=== PATIENT | female | born 1930 | race Caucasian/White ===

== ENCOUNTER → 2017-01-14 | Outpatient (CLI) | payer MEDICARE, BC ==
[2014-05-10 10:52] VITALS: BP 147/72
--- NOTE | 2017-01-14 16:17 | RAD ---
DATE: 01/14/2017 EXAM: DIGITAL SCREEN BILAT W/CAD HISTORY: Bilateral screening mammogram COMPARISON: Multiple prior examinations including 01/14/2016, 01/11/2015 This study was interpreted with the benefit of Computerized Aided Detection (CAD). The breast parenchyma is heterogeneously dense, which could reduce sensitivity of mammography. Breast parenchyma level C. FINDINGS: Digital 2-D bilateral CC and MLO views. No suspicious mass, calcification or architectural distortion. No significant change from prior examination. IMPRESSION: No mammographic evidence to suggest lucency. BI-RADS 1, negative. Recommend routine screening mammogram in 12 months. BI-RADS CATEGORY: 1 NEGATIVE RECOMMENDED FOLLOW-UP: 12M 12 MONTH FOLLOW-UP PQRS compliance statement: Patient information was entered into a reminder system with a target due date January 2018 for the next mammogram. Mammography is a sensitive method for finding small breast cancers, but it does not detect them all and is not a substitute for careful clinical examination. A negative mammogram does not negate a clinically suspicious finding and should not result in delay in biopsying a clinically suspicious abnormality. "Our facility is accredited by the [employer] Mammography [employer]."
== END | disposition home or self-care (01) ==
LOC: MAMMO 10:21
PROVIDERS: ATTEND Family Medicine
DX: Z12.31 Encounter for screening mammogram for malignant neoplasm of breast (principal)
CPT/HCPCS: G0202; 77067

== ENCOUNTER → 2018-01-19 | Outpatient (CLI) | payer MEDICARE, BC | END | disposition home or self-care (01) | LOC: MAMMO 09:10 | DX: Z12.31 Encounter for screening mammogram for malignant neoplasm of breast (principal); E03.9 Hypothyroidism, unspecified | CPT/HCPCS: 77063; 77067 ==

== ENCOUNTER → 2019-01-24 | Outpatient (CLI) | payer MEDICARE, BC ==
[2018-02-26 15:00] VITALS: BP 110/62
[~2019-01-24] MED LIST: AMLO5TAB10 PO; LEVO50TA5 PO; NABU500T PO; OMEP40CA5 PO; PSYL0.4C2 PO; SIMV20TA3 PO
--- NOTE | 2019-01-27 17:58 | RAD ---
DATE: 01/24/2019 10:53 AM EXAM: DIGITAL SCREEN BILAT W/CAD HISTORY: Routine screening evaluation COMPARISON: Prior mammographic imaging 01/19/2018, 01/14/2017, 01/14/2016 Bilateral full field craniocaudal and mediolateral oblique images were obtained using digital technique. This study was interpreted with the benefit of Computerized Aided Detection (CAD). FINDINGS: Breast Density: HETERO The breast parenchyma Is heterogeneously dense, which could reduce sensitivity of mammography. Breast parenchyma level C Benign calcifications are present. The parenchymal pattern appears stable. No suspicious masses, microcalcifications or architectural distortion is present to suggest malignancy in either breast. The visualized axillae are unremarkable. IMPRESSION: No mammographic evidence of malignancy. BI-RADS CATEGORY: 2 BENIGN FINDING(S) RECOMMENDED FOLLOW-UP: 12M 12 MONTH FOLLOW-UP Annual screening mammography is recommended, unless clinically indicated sooner based on symptoms or change in physical exam. PQRS compliance statement: Patient information was entered into a reminder system with a target due date for the next mammogram. Mammography is a sensitive method for finding small breast cancers, but it does not detect them all and is not a substitute for careful clinical examination. A negative mammogram does not negate a clinically suspicious finding and should not result in delay in biopsying a clinically suspicious abnormality. "Our facility is accredited by the [employer] Mammography [employer]."
== END | disposition home or self-care (01) ==
LOC: MAMMO 10:35
PROVIDERS: ATTEND Family Medicine
DX: Z12.31 Encounter for screening mammogram for malignant neoplasm of breast (principal); N64.89 Other specified disorders of breast
CPT/HCPCS: 77067

== ENCOUNTER → 2020-01-26 | Outpatient (CLI) | payer MEDICARE, BC ==
[2018-02-26 15:00] VITALS: BP 110/62
[~2020-01-26] MED LIST changes: +OMEP40CA45 PO; -OMEP40CA5 PO; +SIMV20TA18 PO; -SIMV20TA3 PO
--- NOTE | 2020-01-26 15:06 | RAD ---
DATE: 01/26/2020 2:20 PM EXAM: MAMMO MARY SCREENING BILATERAL HISTORY: Screening COMPARISON: 01/24/2019 Bilateral CC and MLO views of the breasts were performed. Bilateral breast tomosynthesis was performed in CC and MLO projections. FINDINGS: Breast Density: HETERO The breast parenchyma Is heterogeneously dense, which could reduce sensitivity of mammography. Breast parenchyma level C No suspicious masses, microcalcifications or architectural distortion is present to suggest malignancy in either breast. The visualized axillae are unremarkable. IMPRESSION: No mammographic evidence of malignancy. BI-RADS CATEGORY: 1 NEGATIVE RECOMMENDED FOLLOW-UP: 12M 12 MONTH FOLLOW-UP Annual screening mammography is recommended, unless clinically indicated sooner based on symptoms or change in physical exam. PQRS compliance statement: Patient information was entered into a reminder system with a target due date for the next mammogram. Mammography is a sensitive method for finding small breast cancers, but it does not detect them all and is not a substitute for careful clinical examination. A negative mammogram does not negate a clinically suspicious finding and should not result in delay in biopsying a clinically suspicious abnormality. "Our facility is accredited by the [employer] Mammography [employer]."
== END | disposition home or self-care (01) ==
LOC: MAMMO 14:05
PROVIDERS: ATTEND Family Medicine
DX: Z12.31 Encounter for screening mammogram for malignant neoplasm of breast (principal)
CPT/HCPCS: 77063; 77067

== ENCOUNTER 2020-03-08 12:11 | Emergency (ER) | payer MEDICARE, BC ==
[~2020-03-08] VITALS: Ht 149.9 cm; Wt 54.0 kg
[2020-03-08] MEDS ORDERED: FAMOTIDINE 20 MG/2 ML VIAL IVP ONE (14:00)
[2020-03-08] MEDS ORDERED: IV NORMAL SALINE 1000ML BAG 1,000 ML IV ONE (14:00)
--- NOTE | 2020-03-08 14:11 | PHYS DOC ---
Past Medical History Past Medical History: No Pertinent History Past Surgical History: Hysterectomy, Tonsillectomy, Other Additional Past Surgical Histo: Bladder surgery, carpal tunnel release, bunyon removal Smoking Status: Never Smoker Alcohol Use: None Drug Use: None General Adult EDM: Chief Complaint: GI PROBLEM HPI: HPI: Patient is a 89 year old female who presents to the ED today complaining of rectal bleeding that began yesterday. Patient reports passing clots since yesterday into today. She states she has previous history of rectal bleeding as well as hemorrhoids, she states symptoms occurred last time because of constipation. She states this time she is not constipated. She states she has some mild abdominal cramping with no exacerbating or relieving factors. Denies any nausea vomiting. Denies any diarrhea. Denies being on any blood thinners. Review of Systems: Review of Systems: Constitutional: Denies fever or chills. [] Eyes: Denies change in visual acuity. [] HENT: Denies nasal congestion or sore throat. [] Respiratory: Denies cough or shortness of breath. [] Cardiovascular: Denies chest pain or edema. [] GI: Reports rectal bleeding and abdominal cramping, denies nausea, vomiting, bloody stools or diarrhea. [] : Denies dysuria. [] Musculoskeletal: Denies back pain or joint pain. [] Integument: Denies rash. [] Neurologic: Denies headache, focal weakness or sensory changes. [] Psychiatric: Denies depression or anxiety. [] Heart Score: Risk Factors: Risk Factors: DM, Current or recent (<one month) smoker, HTN, HLP, family history of CAD, obesity. Risk Scores: Score 0 - 3: 2.5% MACE over next 6 weeks - Discharge Home Score 4 - 6: 20.3% MACE over next 6 weeks - Admit for Clinical Observation Score 7 - 10: 72.7% MACE over next 6 weeks - Early Invasive Strategies Current Medications: Current Medications Medications (Trade) Dose Ordered Sig/Neelam Start Time Stop Time Status Last Admin Dose Admin Famotidine (Pepcid Vial) 20 mg 1X ONCE 03/08/20 14:00 03/08/20 14:01 DC Sodium Chloride 1,000 ml @ 1,000 mls/hr 1X ONCE 03/08/20 14:00 03/08/20 14:59 Allergies: Allergies: Allergies Coded Allergies Type Severity Reaction Last Updated Verified No Known Drug Allergies 06/10/13 No Physical Exam: PE: Constitutional: Well developed, well nourished, no acute distress, non-toxic appearance. [] HENT: Normocephalic, atraumatic, bilateral external ears normal, oropharynx mo ist, no oral exudates, nose normal. [] Eyes: PERRLA, EOMI, conjunctiva normal, no discharge. [] Neck: Normal range of motion, no tenderness, supple, no stridor. [] Cardiovascular:Heart rate regular rhythm, no murmur [] Lungs & Thorax: Bilateral breath sounds clear to auscultation [] Abdomen: Bowel sounds normal, soft, no tenderness, no masses, no pulsatile masses. [] Rectal exam External rectum with non thrombosed small hemorrhoids. Internal rectum with no palpable hemorrhoids. Positive Hemoccult on exam. Skin: Warm, dry, no erythema, no rash. [] Back: No tenderness, no CVA tenderness. [] Extremities: No tenderness, no cyanosis, no clubbing, ROM intact, no edema. [] Neurologic: Alert and oriented X 3, normal motor function, normal sensory function, no focal deficits noted. [] Psychologic: Affect normal, judgement normal, mood normal. [] EKG: EKG: [] Radiology/Procedures: Radiology/Procedures: []PROCEDURE: CT ABD PELV W/ IV CONTRST ONLY PQRS Compliance Statement: One or more of the following individualized dose reduction techniques were utilized for this examination: 1. Automated exposure control 2. Adjustment of the mA and/or kV according to patient size 3. Use of iterative reconstruction technique CT ABD PELV W/ IV CONTRST ONLY Clinical Indication: Reason: rectal bleeding, abd pain / S Comparison: CT abdomen and pelvis with contrast, February 24, 2018. Technique: Helical CT imaging of the abdomen and pelvis is performed after 75 cc of Omnipaque 300 IV contrast. Oral contrast not administered. Findings: There are moderate reticular and groundglass opacities in the visualized bilateral lower lobes. A component of this is scarring but the opacities have increased from prior study. Calcific aortic valve stenosis. Coronary artery disease. Cardiac size upper limits of normal. The dome of the liver is excluded. There is a large gallstone. There is enhancement of the wall of the gallbladder unchanged from prior study. There is no definite thickening. The spleen, pancreas, and right adrenal gland are normal. Nodularity of the left adrenal gland is unchanged. There is severe atherosclerotic calcification of the abdominal aorta and iliac arteries. Kidneys enhance symmetrically, no hydronephrosis. There are bilateral extrarenal pelves. Stomach is not well distended. There is no dilated small bowel. The appendix is normal. There are multiple colonic diverticula. No colon wall thickening is identified. There is no abdominal adenopathy or free fluid. The urinary bladder is normal. Hysterectomy. No pelvic free fluid. There is mild left convexity lumbar scoliosis. Left inguinal surgical clips. IMPRESSION: 1. No acute abdominal or pelvic abnormality. 2. There are moderate reticular and groundglass opacities in the bilateral lower lobes. Opacities are increased from prior study. Considerations include increased scarring, or atelectasis or pneumonia. 3. Colon diverticulosis. 4. Cholelithiasis. Electronically signed by: Frank Machuca MD (03/08/2020 3:19 PM) [facility] DICTATED and SIGNED BY: FRANK MACHUCA MD DATE: 03/08/20 1519 Course & Med Decision Making: Course & Med Decision Making Pertinent Labs and Imaging studies reviewed. (See chart for details) This is a 89-year-old female patient presenting to the ED today with rectal bleeding that began yesterday. Positive Hemoccult, CBC with a hemoglobin of 12.4, hematocrit 35.9. CMP with no acute findings, urine positive for UTI-discharged on cephalexin. CT of the abdomen and pelvic was negative for any acute finding in the abdomen or pelvis, images of the chest showed moderate reticular and groundglass opacities in the bilateral lower lobes. Opacities are increased from prior study. Considerations include increased scarring, or atelectasis or pneumonia, colon diverticulosis and cholelithiasis. Patient was swabbed for COVID19 and results will be called to her when available. She was instructed to quarantine herself. She was provided instructions to follow-up with GI, and general surgery for cholelithiasis. She was also provided instructions to return to the ED at any point symptoms worsen. Dragon Disclaimer: Dragon Disclaimer: This electronic medical record was generated, in whole or in part, using a voice recognition dictation system. Departure Departure Impression: Primary Impression: Rectal bleeding Additional Impressions: Cholelithiasis Qualified Codes: K80.80 - Other cholelithiasis without obstruction Urinary tract infection Qualified Codes: N39.0 - Urinary tract infection, site not specified Person under investigation for COVID-19 Disposition: 01 HOME, SELF-CARE Condition: STABLE Referrals: SANDRA GANDHI (PCP) follow up in 1 week LEONA UNDERWOOD MD follow up with him for rectal bleeding JEF DANIEL MD follow up for gall stones showing up on your Cat scan Patient Instructions: Cholelithiasis, [id number], Rectal Bleeding, [id number], Urinary Tract Infection Additional Instructions: You were evaluated in the emergency room for abdominal pain with rectal bleeding. Your hemoglobin is normal. Your urine was positive for urinary tract infection, we put you on antibiotics ensure you complete them. Your CAT scan of the abdomen and pelvic was negative for any acute findings, you noted to have some gallstones, this can be followed up as an outpatient with the provided general surgeon. He also have diverticulosis, this outpouching in your colon, they can be followed up with your car seat maker as an outpatient. The images of your lower chest showing on CAT scan were noted for possible COVID19, we collected swabs for COVID19, we will call you in the next 7 days with results. In the meantime quarantine yourself. Maintain good hand hygiene. Follow-up with your doctor in the course of this week or next week. Scripts Ascorbic Acid (VITAMIN C) 500 Mg Capsule.er 1 CAP PO DAILY for 10 Days, #10 CAP 0 Refills Prov: GAVINO ROSE APRN 03/08/20 Cholecalciferol (Vitamin D3) (Vitamin D3) 125 Mcg Capsule 125 MCG PO DAILY, #10 CAP Prov: MUTGAVINO [employer]UM [employer]ER[employer] MACHINE OPERATOR 03/08/20 Zinc (ZINC) 50 Mg Tablet 1 TAB PO DAILY, #10 TAB 0 Refills Prov: MARIAGAVINO APRN 03/08/20 Azithromycin (ZITHROMAX) 250 Mg Tablet 1 PKG PO UD, #1 PKG Prov: GAVINO ROSE FEATHEREDGE MACHINE OPERATOR 03/08/20 Prednisone (PREDNISONE) 50 Mg Tablet 1 TAB PO DAILY, #5 TAB Prov: MUTGAVINO BLUM FEATHEREDGE MACHINE OPERATOR 03/08/20 Cephalexin (CEPHALEXIN) 500 Mg Tablet 1 TAB PO BID, #14 TAB Prov: MUTOLENAAGAVINO FEATHEREDGE MACHINE OPERATOR 03/08/20 Justicifation of Admission Dx: Justifications for Admission: Justification of Admission Dx: N/A GAVINO ROSE APRN Mar 08, 2020 14:11
[2020-03-08 14:13] LABS: FECAL OB PT POSITIVE (NEG)
[2020-03-08 14:25] LABS: BASO # 0.1 x10^3/uL (0.0-0.2); BASO % 1 % (0-3); EOS # 0.1 x10^3/uL (0.0-0.7); EOS % 2 % (0-3); HEMATOCRIT 35.9 % (36.0-47.0); HEMOGLOBIN 12.4 g/dL (12.0-15.5); LYMPH # 1.2 x10^3/uL (1.0-4.8); LYMPH % 19 % (24-48); MEAN CORPUSCULAR HEMOGLOBIN 30 pg (25-35); MEAN CORPUSCULAR HGB CONC 34 g/dL (31-37); MEAN CORPUSCULAR VOLUME 88 fL (79-100); MONO # 0.5 x10^3/uL (0.0-1.1); MONO % 8 % (0-9); NEUT # 4.4 x10^3/uL (1.8-7.7); NEUT % 70 % (31-73); PLATELET COUNT 306 x10^3/uL (140-400); RED CELL DISTRIBUTION WIDTH 13.9 % (11.5-14.5); WHITE BLOOD COUNT 6.3 x10^3/uL (4.0-11.0)
[2020-03-08 14:39] LABS: BILIRUBIN,URINE NEGATIVE (NEG); CLARITY,URINE CLEAR; COLOR,URINE YELLOW; NITRITE,URINE POSITIVE (NEG); PROTEIN,URINE NEGATIVE (NEG-TRACE); UROBILINOGEN,URINE 0.2 mg/dL (0.2 mg/dL)
[2020-03-08 14:42] LABS: CALCIUM 8.8 mg/dL (8.5-10.1); CREATININE 0.7 mg/dL (0.6-1.0)
[2020-03-08 14:43] LABS: BACTERIA,URINE MANY /HPF (0-FEW); SQUAMOUS EPITHELIAL CELL,UR FEW /LPF; WBC,URINE >40 /HPF (0-4)
[2020-03-08] MEDS ORDERED: IOHEXOL 300 MG/ML 100ML VIAL. IV ONE (14:45)
[2020-03-08 14:51] LABS: ALBUMIN 3.4 g/dL (3.4-5.0); MAGNESIUM 2.2 mg/dL (1.8-2.4); TOTAL BILIRUBIN 0.3 mg/dL (0.2-1.0); TOTAL PROTEIN 6.9 g/dL (6.4-8.2)
[2020-03-08 14:51] LABS: BARBITURATES NEG (NEG); BENZODIAZEPINES NEG (NEG); CANNABINOIDS NEG (NEG); COCAINE NEG (NEG); METHADONE NEG (NEG); OPIATES NEG (NEG); PHENCYCLIDINE NEG (NEG)
[2020-03-08 14:53] LABS: AMPHETAMINE/METHAMPHETAMINE NEG (NEG)
[2020-03-08] MEDS ORDERED: CONTRAST GIVEN. MC PRN (15:00)
--- NOTE | 2020-03-08 15:22 | RAD ---
PQRS Compliance Statement: One or more of the following individualized dose reduction techniques were utilized for this examination: 1. Automated exposure control 2. Adjustment of the mA and/or kV according to patient size 3. Use of iterative reconstruction technique CT ABD PELV W/ IV CONTRST ONLY Clinical Indication: Reason: rectal bleeding, abd pain / S Comparison: CT abdomen and pelvis with contrast, February 24, 2018. Technique: Helical CT imaging of the abdomen and pelvis is performed after 75 cc of Omnipaque 300 IV contrast. Oral contrast not administered. Findings: There are moderate reticular and groundglass opacities in the visualized bilateral lower lobes. A component of this is scarring but the opacities have increased from prior study. Calcific aortic valve stenosis. Coronary artery disease. Cardiac size upper limits of normal. The dome of the liver is excluded. There is a large gallstone. There is enhancement of the wall of the gallbladder unchanged from prior study. There is no definite thickening. The spleen, pancreas, and right adrenal gland are normal. Nodularity of the left adrenal gland is unchanged. There is severe atherosclerotic calcification of the abdominal aorta and iliac arteries. Kidneys enhance symmetrically, no hydronephrosis. There are bilateral extrarenal pelves. Stomach is not well distended. There is no dilated small bowel. The appendix is normal. There are multiple colonic diverticula. No colon wall thickening is identified. There is no abdominal adenopathy or free fluid. The urinary bladder is normal. Hysterectomy. No pelvic free fluid. There is mild left convexity lumbar scoliosis. Left inguinal surgical clips. IMPRESSION: 1. No acute abdominal or pelvic abnormality. 2. There are moderate reticular and groundglass opacities in the bilateral lower lobes. Opacities are increased from prior study. Considerations include increased scarring, or atelectasis or pneumonia. 3. Colon diverticulosis. 4. Cholelithiasis. Electronically signed by: Frank Machuca MD (03/08/2020 3:19 PM) [facility]
[2020-03-08 15:30] VITALS: BP 170/70
[2020-03-08] MEDS ORDERED: CEPH500T PO (16:02)
[2020-03-08] MEDS ORDERED: CHOL500051 PO (16:11)
[2020-03-08] MEDS ORDERED: AZIT250T PO (16:11)
[2020-03-08] MEDS ORDERED: ZINC50TA39 PO (16:11)
[2020-03-08] MEDS ORDERED: PRED50TA PO (16:11)
[2020-03-08] MEDS ORDERED: ASCO500C PO (16:11)
== END 2020-03-08 17:17 | disposition home or self-care (01) ==
LOC: ER 12:11
DX: K62.5 Hemorrhage of anus and rectum (principal); K64.4 Residual hemorrhoidal skin tags; K80.80 Other cholelithiasis without obstruction; N39.0 Urinary tract infection, site not specified; K57.30 Diverticulosis of large intestine without perforation or abscess without bleeding; Z20.828 Contact with and (suspected) exposure to other viral communicable diseases
CPT/HCPCS: 36415; 74177; 80053; 80307; 81001; 82274; 83690; 83735; 85025; 87086; 96361; 96374; 99285; G0480; J3490; J7030; Q9967; U0003; 99284

== ENCOUNTER 2021-04-04 14:50 | Emergency (ER) | payer MEDICARE, BC ==
[~2021-04-04] VITALS: Ht 152.4 cm; Wt 52.7 kg
[~2021-04-04 14:50] MED LIST changes: +AMLO-186 PO; -AMLO5TAB10 PO; +ASCO500C PO; +AZIT250T PO; +CEPH500T PO; +CHOL5000 PO; -NABU500T PO; +NABU500T11 PO; -OMEP40CA45 PO; +OMEP40CA7 PO; +POLY17PO29 PO; +PRED50TA PO; +ZINC50TA39 PO
[2021-04-04 16:00] VITALS: BP 171/72
--- NOTE | 2021-04-04 16:23 | PHYS DOC ---
Past Medical History Past Medical History: No Pertinent History Past Surgical History: Hysterectomy, Tonsillectomy, Other Additional Past Surgical Histo: Bladder surgery, carpal tunnel release, bunyon removal Smoking Status: Never Smoker Alcohol Use: None Drug Use: None General Adult EDM: Chief Complaint: RECTAL BLEED HPI: HPI: Patient is a 89 year old female who presents with rectal bleeding. She does report history of diverticulosis as well as external hemorrhoid. She has been bleeding for the past few days. She and her daughter report that the bleeding is not as severe as it has been in the past. She denies any nausea, vomiting, diarrhea. She has had some constipation issues and has been straining. She does report some mid suprapubic abdominal discomfort. She has a history of recurrent urinary tract infections, secondary to bladder prolapse. She denies any bleeding from other sites or sources. She denies dizziness. She denies chest pain, dyspnea or weakness. Review of Systems: Review of Systems: Constitutional: Denies fever or chills. [] Eyes: Denies change in visual acuity. [] HENT: Denies nasal congestion or sore throat. [] Respiratory: Denies cough or shortness of breath. [] Cardiovascular: Denies chest pain or edema. [] GI: Denies abdominal pain, nausea, vomiting, diarrhea. She does report some constipation symptoms. She does report bright red blood per rectum, which is rec urrent. : She does report suprapubic discomfort and chronic urinary urgency. She denies gross hematuria or dysuria. Musculoskeletal: Denies back pain or joint pain. [] Integument: Denies rash. [] Neurologic: Denies headache, focal weakness or sensory changes. [] Psychiatric: Denies depression or anxiety. [] Heart Score: C/O Chest Pain: No Risk Factors: Risk Factors: DM, Current or recent (<one month) smoker, HTN, HLP, family history of CAD, obesity. Risk Scores: Score 0 - 3: 2.5% MACE over next 6 weeks - Discharge Home Score 4 - 6: 20.3% MACE over next 6 weeks - Admit for Clinical Observation Score 7 - 10: 72.7% MACE over next 6 weeks - Early Invasive Strategies Allergies: Allergies: Allergies Coded Allergies Type Severity Reaction Last Updated Verified Sulfa (Sulfonamide Antibiotics) Adverse Reaction Intermediate 11/24/20 Yes Physical Exam: PE: Constitutional: Well developed, well nourished, no acute distress, non-toxic appearance. [] HENT: Normocephalic, atraumatic, bilateral external ears normal, oropharynx moist, no oral exudates, nose normal. [] Eyes: sclera are clear and anicteric, conjunctival are not pale, no discharge. [] Neck: Normal range of motion, no tenderness, supple, no stridor. [] Cardiovascular:Heart rate regular rhythm, +2 radial and posterior tibial pulses Lungs & Thorax: Bilateral breath sounds clear to auscultation [] Abdomen: Bowel sounds normal, soft, no tenderness, no masses, no pulsatile masses. No CVA tenderness, no flank or abdominal ecchymoses. Rectal exam: External, nonthrombosed hemorrhoid, scant bleeding, no brisk or active bleeding. No tenderness. Skin: Warm, dry, no erythema, no rash. [] Back: No tenderness, no CVA tenderness. [] Extremities: No tenderness, no cyanosis, no clubbing, ROM intact, no edema. [] Neurologic: Alert and oriented X 3, normal motor function, her speech is fluent, gait is steady Psychologic: Affect normal, judgement normal, mood normal. [] EKG: EKG: [] Radiology/Procedures: Radiology/Procedures: [] Course & Med Decision Making: Course & Med Decision Making Pertinent Labs and Imaging studies reviewed. (See chart for details) I discussed the findings, differential diagnosis and plan of care with the patient and her daughter. Her hemoglobin is decreased minimally to 10.6 from 11, from previous. Her abdominal exam is benign, no elicited tenderness noted. Urine does demonstrate findings of urinary tract infection. She is given a first dose of p.o. Keflex here. Prescription provided for discharge. There is no current indication for further emergent imaging or invasive exams at this time. She is not hemodynamically unstable, she is not bleeding excessively. She has not been interested in returning to GI for endoscopy, though I did explain that if bleeding does persist or continue, she may need to discuss this. I recommend she contact her PCP for follow-up about this as well as her urinary tract infection. She is comfortable with the plan for discharge home. Return precautions are given. Radha Disclaimer: Radha Disclaimer: This electronic medical record was generated, in whole or in part, using a voice recognition dictation system. Departure Departure Impression: Primary Impression: Rectal bleeding Additional Impressions: External hemorrhoid History of diverticulosis Urinary tract infection Disposition: HOME / SELF CARE / HOMELESS Condition: STABLE Referrals: SANDRA GANDHI (PCP) Patient Instructions: Hemorrhoids, Rectal Bleeding, Urinary Tract Infection Additional Instructions: Take the full course of antibiotics as directed until gone. Stay well-hydrated, drink plenty of water. Return immediately for any heavy or uncontrolled rectal bleeding, for fever of 100.4 or higher, uncontrolled vomiting, dehydration, more severe abdominal pain, weakness, severe dizziness or any other concerns. Please contact your primary care physician for follow-up. If your bleeding persists or becomes very heavy, you could consider repeat outpatient GI consultation or endoscopy, if warranted. Scripts Cephalexin (KEFLEX) 500 Mg Capsule 1 CAP PO BID for 7 Days, #14 CAP Prov: MICHELE ENRIQUEZ DO 04/04/21 MICHELE ENRIQUEZ DO Apr 04, 2021 16:22
[2021-04-04 16:53] LABS: BASO # 0.1 x10^3/uL (0.0-0.2); BASO % 2 % (0-3); EOS # 0.1 x10^3/uL (0.0-0.7); EOS % 2 % (0-3); HEMATOCRIT 31.4 % (36.0-47.0); HEMOGLOBIN 10.6 g/dL (12.0-15.5); LYMPH # 1.4 x10^3/uL (1.0-4.8); LYMPH % 24 % (24-48); MEAN CORPUSCULAR HEMOGLOBIN 27 pg (25-35); MEAN CORPUSCULAR HGB CONC 34 g/dL (31-37); MEAN CORPUSCULAR VOLUME 80 fL (79-100); MONO # 0.5 x10^3/uL (0.0-1.1); MONO % 8 % (0-9); NEUT # 3.7 x10^3/uL (1.8-7.7); NEUT % 64 % (31-73); PLATELET COUNT 336 x10^3/uL (140-400); RED BLOOD COUNT 3.93 x10^6/uL (3.50-5.40); RED CELL DISTRIBUTION WIDTH 15.8 % (11.5-14.5); WHITE BLOOD COUNT 5.8 x10^3/uL (4.0-11.0)
[2021-04-04 17:09] LABS: CALCIUM 8.5 mg/dL (8.5-10.1); CREATININE 0.7 mg/dL (0.6-1.0); GFR 78.8; POTASSIUM 4.1 mmol/L (3.5-5.1)
[2021-04-04 17:15] LABS: ALBUMIN 3.4 g/dL (3.4-5.0); ALBUMIN/GLOBULIN RATIO 0.9 (1.0-1.7); TOTAL BILIRUBIN 0.3 mg/dL (0.2-1.0)
[2021-04-04 18:52] LABS: BILIRUBIN,URINE NEGATIVE (NEG); CLARITY,URINE CLEAR; COLOR,URINE YELLOW; NITRITE,URINE POSITIVE (NEG); PROTEIN,URINE NEGATIVE (NEG-TRACE); UROBILINOGEN,URINE 0.2 mg/dL (0.2 mg/dL)
[2021-04-04 19:00] LABS: BACTERIA,URINE MANY /HPF (0-FEW); RBC,URINE OCC /HPF (0-2); WBC,URINE 20-40 /HPF (0-4)
[2021-04-04] MEDS ORDERED: CEPH500C PO (19:22)
[2021-04-04] MEDS ORDERED: CEPHALEXIN 250 MG CAPSULE. PO SCH (19:45)
== END 2021-04-04 21:15 | disposition home or self-care (01) ==
LOC: ER 15:26
DX: K64.4 Residual hemorrhoidal skin tags (principal); N39.0 Urinary tract infection, site not specified; K62.5 Hemorrhage of anus and rectum; Z87.440 Personal history of urinary (tract) infections; Z90.710 Acquired absence of both cervix and uterus
CPT/HCPCS: 36415; 80053; 81001; 83690; 85025; 86850; 86900; 86901; 87086; 99283